=== PATIENT | female | born 2000 | race Caucasian/White ===

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

== ENCOUNTER 2019-08-03 23:25 | Outpatient (CLI) | payer MEDICAID ==
[~2019-08-03] VITALS: Ht 162.6 cm; Wt 99.5 kg
--- NOTE | 2019-08-03 23:35 | NUR ---
Ambulatory to unit for labor assessment, accompanied by Boyfriend and grandma. Oriented to room, monitor, plan of care.
[2019-08-03 23:50] VITALS: BP 115/70; PULSE 16; TEMP 98.9
[2019-08-04] MEDS ORDERED: PRENATAL TABLET PO (00:22)
--- NOTE | 2019-08-04 00:50 | NUR ---
repeat SVE with no changes noted. Reviewed with pt.
--- NOTE | 2019-08-04 01:20 | NUR ---
Discharge instructions reviewed with pt. Questions invited and answered. Ambulatory off unit.
== END 2019-08-04 01:20 | disposition home or self-care (01) ==
LOC: LDRO 23:25 → LDR 08-04 00:11 → LDRO 08-04 01:20
DX: O62.9 Abnormality of forces of labor, unspecified (principal); Z3A.37 37 weeks gestation of pregnancy
CPT/HCPCS: OP

== ENCOUNTER 2019-08-21 06:57 | Inpatient (IN) | payer MEDICAID ==
[2019-08-21] VITALS (42 sets, daily range): BP systolic 92–148; BP diastolic 50–97; PULSE 75–126; TEMP 97.4–98.9
[~2019-08-21] VITALS: Ht 162.6 cm; Wt 101.8 kg
[~2019-08-21 06:57] MED LIST changes: +PRENATAL TABLET PO
[2019-08-21 08:14] LABS: BASO % 0.2 % (0.0-2.0); EOS # 0.2 (0.0-0.7); EOS % 1.1 % (0-4.0); GRAN # 8.6 (1.4-6.5); GRAN % 63.8 % (42.2-75.2); HEMOGLOBIN 11.8 g/dl (12.0-15.0); LYMPH # 3.5 (1.2-3.4); MEAN CELL VOLUME 88 fl (80.0-95.0); MEAN CORPUSCULAR HEMOGLOBIN 30 pg (26.0-32.0); MEAN CORPUSCULAR HGB CONC 35 g/dl (33.0-37.0); MEAN PLATELET VOLUME 10.8 fl (7.4-10.4); MONO # 1.1 (0.1-0.6); MONO % 8.3 % (1.7-9.3); PLATELET COUNT 277 K/mm3 (130-400); RED BLOOD COUNT 3.89 M/mm3 (4.10-5.30)
[2019-08-21 08:18] LABS: HEMATOCRIT 34.2 % (35.0-45.0)
--- NOTE | 2019-08-21 15:32 | NUR ---
[id number] HEART TONES AUDIBLE 110S. TRACING 90S INTERMITTENTLY. PATIENT, WL, WR, LL, RL, ARACELY. DR DO CALLED IN ROUTE TO HOSPITAL. INTERNAL MONITOR PLACED BY GUTIERREZ Zaldivar. KIMBERLY DO IN ROOM AT 1522. BY DR DO AT 1532. TO MOTHERS CHEST IN CARE OF KIMBERLY RUGGIERO. FOB CUT CORD. PLACENTA SPON DELIVERED. 1ST DEGREE AND BILATERAL LABIAL REPAIRED BY DR DO. PITOCIN TO 333MLS/HR IMMEDIATELY AFTER PLACENTA EXPELLED. FUNDAL MASSAGE PROVIDED. ICE PACK TO PERINEUM. RECOVERY STARTED AT 1545.
[2019-08-22 04:05] VITALS: BP 107/50; PULSE 81; TEMP 98.6
[2019-08-22] MEDS ORDERED: IBU600 MG PO (06:43)
[2019-08-22] MEDS ORDERED: PERCOCET 325 MG1 TA2 PO (06:44)
[2019-08-22 07:50] VITALS: BP 117/68; PULSE 74; TEMP 97.3
[2019-08-22 15:35] VITALS: BP 117/51; PULSE 91; TEMP 97.9
== END 2019-08-22 17:15 | disposition home or self-care (01) | DRG 807 ==
LOC: LDR 06:57 → OB 06:57 → LDR 07:03 → OB 17:53
PROVIDERS: ADMIT Obstetrics & Gynecology
PROC: 10907ZC Drainage of Amniotic Fluid, Therapeutic from Products of Conception, Via Natural or Artificial Opening (ICD-10-PCS; principal; 2019-08-21)
PROC: 10E0XZZ Delivery of Products of Conception, External Approach (ICD-10-PCS; 2019-08-21)
PROC: 0UQMXZZ Repair Vulva, External Approach (ICD-10-PCS; 2019-08-21)
DX: O48.0 Post-term pregnancy (principal); Z37.0 Single live birth; O70.0 First degree perineal laceration during delivery; Z3A.40 40 weeks gestation of pregnancy
CPT/HCPCS: J2590; J2795; J7120

== ENCOUNTER 2021-02-14 13:34 | Outpatient (CLI) | payer MEDICAID ==
[~2021-02-14] VITALS: Ht 162.6 cm; Wt 92.7 kg
[~2021-02-14 13:34] MED LIST changes: +IBU600 MG PO; +PERCOCET 325 MG1 TA2 PO
[2021-02-14 13:40] VITALS: BP 115/59; PULSE 85; TEMP 98.4
[2021-02-14] MEDS ORDERED: OSCAL 500 TAB500 MG (13:52)
--- NOTE | 2021-02-14 13:59 | NUR ---
1340 PATIENT HERE FOR CONTRACTIONS THAT ARE OFF AND ON. EFM ON FHT 140 BABY VERY ACTIVE. NO CONTRACTIONS ON MONITOR OR PALPATED AT THIS ITME. SVE /-3/ DENIES OTHER COMPLAINTS. DR OLMSETAD CALLED AND UPDDATED. ORDERS TO GET 20 MIN REACTIVE STRIP AND SEND PATIENT HOME
[2021-02-14 14:12] VITALS: BP 112/60; PULSE 78
[2021-02-14 14:26] VITALS: PULSE 73
--- NOTE | 2021-02-14 14:27 | NUR ---
1425 PATIENT DISCHARGE INSTRUCTIONS GIVEN WITH VERBAL UNDERSTANDING. DENIES OTHER NEEDS. DISMISSED AT THIS TIME.
== END 2021-02-14 14:29 | disposition home or self-care (01) ==
LOC: LDRO 13:34 → LDR 13:40 → LDRO 14:29
DX: O62.9 Abnormality of forces of labor, unspecified (principal); Z3A.37 37 weeks gestation of pregnancy
CPT/HCPCS: OP

== ENCOUNTER 2021-02-25 06:08 | Inpatient (IN) | payer MEDICAID ==
[2021-02-25] VITALS (30 sets, daily range): BP systolic 98–157; BP diastolic 51–88; PULSE 57–100; TEMP 97.9–98.2
[~2021-02-25] VITALS: Ht 162.6 cm; Wt 89.6 kg
[~2021-02-25 06:08] MED LIST changes: +OSCAL 500 TAB500 MG
--- NOTE | 2021-02-25 06:30 | NUR ---
Pt arrived on unit ambulatory for scheduled induction of labor. Pt reports occasional contractions, denies any leaking of fluid or vaginal bleeding and reports normal movement. EFM and toco monitors started. Vital signs WNL. Plan of care for labor induction reviewed wtih pt and boyfriend at the bedside.
[2021-02-25 07:31] LABS: BASO % 0.3 % (0.0-2.0); EOS # 0.1 K/mm3 (0.0-0.7); EOS % 1.2 % (0-4.0); GRAN # 6.8 K/mm3 (1.4-6.5); GRAN % 61.5 % (42.2-75.2); HEMOGLOBIN 11.7 g/dl (12.5-16.0); LYMPH # 3.1 K/mm3 (1.2-3.4); LYMPH % 27.9 % (20.0-51.0); MEAN CELL VOLUME 92 fl (80.0-100.0); MEAN CORPUSCULAR HEMOGLOBIN 32 pg (27.0-31.0); MEAN CORPUSCULAR HGB CONC 35 g/dl (33.0-37.0); MEAN PLATELET VOLUME 10.9 fl (7.4-10.4); MONO % 8.6 % (1.7-9.3); PLATELET COUNT 249 K/mm3 (130-400); RED BLOOD COUNT 3.66 M/mm3 (4.10-5.30); REDCELL DISTRIBUTION WIDTH-CV 12.9 % (11.5-14.5)
[2021-02-25 07:34] LABS: HEMATOCRIT 33.5 % (37.0-47.0)
--- NOTE | 2021-02-25 09:44 | NUR ---
0930- Pt sitting up on the edge of the bed for epidural placement. LIS Gray at the bedside. SPO2 monitor started. 35- EFM intermittently tracing maternal HR as coorelates with SPO2 monitor. 943- Test dose done per LIS Gray. See anesthesia records. 52- Assisted pt back to supine position with left wedge. EFM and toco monitors adjusted.
--- NOTE | 2021-02-25 14:19 | NUR ---
[address] DOMINGO CALLED TO COME FOR DELIVERY. 1400 DR DOMINGO AT BEDSIDE. SVE COMPLETE AND WILL PUSH WITH CONTRACTIONS. 1404 BBAY GIRL BORN VIA BY DR DOMINGO. TOLERATES WELL. CORD CLAMPED AND CUT BY DR DOMINGO AND BABY TO MOMS CHEST. STRONG CRY NOTED. 1406 PLACENTA DELIVERED. AND PITOCIN STARTED AT 333 PER PROTOCOL. INTACT NO REPAIR NEEDED PATIENT SITS UP HOLDING BABY, DENIES NEEDS
--- NOTE | 2021-02-25 16:50 | NUR ---
Pt up to the bathroom with assistance and without complications. Pt was able to void. Alexia-care done. Pt transferred to room 214 via wheelchair. Oriented to room, bed and call light within reach. Plan of care reviewed with pt and boyfriend at the bedside.
[2021-02-26] VITALS: BP 105/65; PULSE 70
[2021-02-26 03:05] VITALS: BP 118/60; PULSE 51; TEMP 97.7
[2021-02-26] MEDS ORDERED: MOTRIN 800800 MG/TAB PO (08:22)
[2021-02-26 08:30] VITALS: BP 130/82; PULSE 76; TEMP 97.9
--- NOTE | 2021-02-26 09:46 | NUR ---
Initial visit; Parents thanked Circulation Director for offering congratulations and God's blessings for the of their daughter. Circulation Director thanked family for choosing our hospital.
--- NOTE | 2021-02-26 16:00 | NUR ---
Discharge instructions and follow up care reviewed with pt and boyfriend at the bedside. Both verbalized an understanding, agreed with plan and states no questions or concerns.
== END 2021-02-26 16:15 | disposition home or self-care (01) | DRG 807 ==
LOC: LDR 06:08 → OB 17:02
PROVIDERS: ADMIT Obstetrics & Gynecology
PROC: 10E0XZZ Delivery of Products of Conception, External Approach (ICD-10-PCS; principal; 2021-02-25)
PROC: 10907ZC Drainage of Amniotic Fluid, Therapeutic from Products of Conception, Via Natural or Artificial Opening (ICD-10-PCS; 2021-02-25)
DX: O80 Encounter for full-term uncomplicated delivery (principal); Z37.0 Single live birth; Z3A.39 39 weeks gestation of pregnancy
CPT/HCPCS: J2590; J7120

== ENCOUNTER 2021-12-17 15:00 | Emergency (ER) | payer MEDICAID ==
[~2021-12-17] VITALS: Ht 165.1 cm; Wt 72.7 kg
[~2021-12-17 15:00] MED LIST changes: +MOTRIN 800800 MG/TAB PO
[2021-12-17 16:15] LABS: ALBUMIN 4.2 gm/dL (3.5-5.0); CALCIUM 9.2 mg/dL (8.4-10.2); CREATININE, serum 0.75 mg/dL (0.57-1.11); POTASSIUM 3.3 mmol/L (3.5-4.5)
[2021-12-17] MEDS ORDERED: REGLAN 10MG10 MG/TAB PO (16:46)
[2021-12-17 16:52] VITALS: BP 117/67; PULSE 100; TEMP 101
== END 2021-12-17 16:58 | disposition home or self-care (01) ==
LOC: COL.ER 15:00
PROVIDERS: Emergency Medicine
DX: R11.2 Nausea with vomiting, unspecified (principal); R51.9 Headache, unspecified; Z28.310 Unvaccinated for COVID-19
CPT/HCPCS: J1885; J2765; J7030